=== PATIENT | female | born 1985 | race Caucasian/White ===

== ENCOUNTER → 2020-10-10 | Outpatient (CLI) | payer OTHER ==
--- NOTE | 2020-10-10 16:31 | US ---
EXAMINATION TYPE: Transabdominal DATE OF EXAM: 10/10/2020 3:56 PM COMPARISON: NONE CLINICAL HISTORY: Z36 Confirm Dates. Positive beta-hCG test. EXAM PERFORMED: Transabdominal (TA) EXAM MEASUREMENTS: GESTATIONAL AGE / DATING Physician Established: Not yet established Dates by LMP: LMP unknown Dates by First Scan: No previous this is first scan Dates by Current Scan for: (11 weeks/0 days) EDC: 05/01/2021 MATERNAL ANATOMY Uterus: 15.9 x 7.1 x 9.5 cm Right Ovary: Obscured by bowel gas. Left Ovary: 2.6 x 1.9 x 1.8 cm Post CDS / Adnexa: wnl Presence of free fluid: no Presence of corpus luteal cyst: no Presence of subchorionic bleed: no GESTATION / SURVEY CRL: 4.04 cm (11 weeks/0 days) Yolk Sac (normal less than 6mm): 5 mm Heart Rate: 158 bpm Rhythm: Normal IUP: Viable IUP Beta HcG (if available): Not available at this time Single live intrauterine gestation is confirmed as gestational sac, yolk sac, pole are present. No free fluid. Left ovary is seen. Right ovary is not identified. No suspicious adnexal masses noted. IMPRESSION: Single live intrauterine gestation, mean crown-rump length 4.0 cm corresponding to 11 wee k 0 day old fetus.
== END | disposition home or self-care (01) ==
LOC: RADUSWWP 15:40
PROVIDERS: ATTEND Obstetrics & Gynecology
DX: Z36.87 Encounter for antenatal screening for uncertain dates (principal); Z3A.11 11 weeks gestation of pregnancy
CPT/HCPCS: 76801

== ENCOUNTER → 2021-04-19 | Outpatient (CLI) | payer OTHER ==
--- NOTE | 2021-04-19 16:02 | US ---
EXAMINATION TYPE: US OB >= 14 wk fetus DATE OF EXAM: 04/19/2021 COMPARISON: None CLINICAL HISTORY: O36.60X0 MACROSOMIAEFW JOHN TECHNIQUE: Transabdominal (TA) GESTATIONAL AGE / DATING Physician Established: (38 weeks/2 days) EDC: 05/01/2021 Dates by LMP: (38 weeks/2 days) EDC: 05/01/2021 Dates by First Scan: (38 weeks/2 days) EDC: 05/01/2021 Dates by Current Scan: (36 weeks/0 days) EDC: 05/17/2021 SURVEY IUP: Single PLACENTA: Fundal PREVIA: No Previa JOHN: 8.6 cm Normal CERVICAL LENGTH (transabdominal: norm > 3.0cm): cm BIOMETRY PRESENTATION: Vertex LIE: Longitudinal BPD: 9.3 cm 37 weeks / 6 days HC: 31.81 cm 35 weeks / 6 days AC: 31.22 cm 35 weeks / 1 days FL: 7.19 cm 36 weeks / 6 days ESTIMATED WEIGHT IN GRAMS: 2810 grams ESTIMATED WEIGHT IN LBS/OZ: 6 lbs. 3 oz. WEIGHT PERCENTAGE BASED ON ESTABLISHED DATES: 12.4% HC/AC: 1.0 cm Normal FL/AC: 23.04 cm Normal HEART RATE: 132 bpm RHYTHM: Normal Head circumference index is mildly elevated. Femur length to head circumference is slightly elevated. IMPRESSION: 1. Single intrauterine gestation estimated at 36 weeks 0 days gestation based on the current ultrasou nd measurements. Cardiac activity measures 132 bpm. 2. Estimated weight is 2810 g based on current measurements. This is in the 12th percentile.
== END | disposition home or self-care (01) ==
LOC: RADUSWWP 10:46
PROVIDERS: ATTEND Obstetrics & Gynecology
DX: O36.60X0 Maternal care for excessive fetal growth, unspecified trimester, not applicable or unspecified (principal); Z3A.36 36 weeks gestation of pregnancy
CPT/HCPCS: 76805

== ENCOUNTER 2021-04-30 06:09 | Inpatient (IN) | payer OTHER ==
--- NOTE | 2021-04-29 16:55 | P.HPOB ---
History of Present Illness H&P Date: 04/29/21 Chief Complaint: Intrauterine at term: Prior surgery and section Rita is a 35-year-old 3 para 22 prior sections was scheduled for repeat section. Risks/benefits/alternatives to this procedure were reviewed the patient in detail and all questions were answered for her prior to proceeding to the operating room. Her course generally has been unremarkable and she is feeling well at this time. Her 1 tracing will be noted prior to proceeding to the operating room. She is scheduled for repeat section.or family planning. There is some concern over macrosomia but with a section plan should limit risks of issues including dystocia or brachial plexus issues. Past Medical History Past Medical History: No Reported History History of Any Multi-Drug Resistant Organisms: None Reported Past Surgical History: Section Past Anesthesia/Blood Transfusion Reactions: No Reported Reaction Additional Past Anesthesia/Blood Transfusion Reaction / Comment(s): HAS NEVER HAD GENERAL ANETHESIA. Past Psychological History: No Psychological Hx Reported Past Alcohol Use History: None Reported Past Drug Use History: None Reported Medications and Allergies Home Medications Medication Instructions Recorded Confirmed Type No Known Home Medications 04/10/15 04/10/15 History Allergies Allergy/AdvReac Type Severity Reaction Status Date / Time No Known Allergies Allergy Verified 04/10/15 15:29 Exam Osteopathic Statement: *. No significant issues noted on an osteopathic structural exam other than those noted in the History and Physical/Consult. - OBG Physical Exam Breast: both: normal (no masses) Abdomen: bowel sounds normal, no diffuse tenderness, no bruit present, no guarding noted, no hepatomegaly, no splenomegaly, no mass Vulva: both: normal Vagina: normal moisture, no discharge Cervix: no lesion, no discharge Uterus: normal size, normal contour Adnexa: both: normal Anus/Rectum: normal perianal skin, no rectal mass, no hemorrhoids, heme negative
[2021-04-30] MEDS ORDERED: CITRIC ACID-SODIUM CITRATE 15 ML CUP PO ONE (06:21)
[2021-04-30] MEDS: LACTATED RINGERS 1,000 ML IV SCH ×2 (06:28→16:06)
[2021-04-30 06:34] LABS: Basophils % (A) 1 %; Eosinophils # (A) 0.2 k/uL (0-0.7); Eosinophils % (A) 2 %; HCT 39.3 % (34.0-46.0); HGB 13.4 gm/dL (11.4-16.0); Lymphocytes # (A) 1.7 k/uL (1.0-4.8); Lymphocytes % (A) 22 %; MCH 31.9 pg (25.0-35.0); MCHC 34.2 g/dL (31.0-37.0); MCV 93.4 fL (80.0-100.0); Monocytes # (A) 0.3 k/uL (0-1.0); Monocytes % (A) 4 %; Neutrophils # (A) 5.4 k/uL (1.3-7.7); Neutrophils % (A) 70 %; Platelet Count 136 k/uL (150-450); RDW 13.4 % (11.5-15.5); WBC 7.8 k/uL (3.8-10.6)
[2021-04-30] MEDS ORDERED: MORPHINE SULFATE (PF) 0.3 MG/0.3 ML SYR ONE (07:55)
[2021-04-30] MEDS ORDERED: ePHEDrine SULFATE/0.9% NACL/PF 50 MG/5 ML SYRINGE IV ONE (07:55)
[2021-04-30] MEDS ORDERED: ONDANSETRON 4 MG/2 ML VIAL ONE (07:55)
[2021-04-30] MEDS ORDERED: KETOROLAC 15 MG/ML 1 ML VIAL ONE (07:55)
[2021-04-30] MEDS ORDERED: NALBUPHINE 10 MG/ML (1 ML AMP) ONE (07:55)
[2021-04-30] MEDS ORDERED: OXYTOCIN 30 UNITS/500 ML NS BAG IV ONE (07:55)
[2021-04-30] MEDS ORDERED: PHENYLEPHRINE-0.9% NACL SYG 1,000 MCG/10 ML SYRINGE ONE (07:55)
[2021-04-30] MEDS ORDERED: diphenhydrAMINE 50 MG/ML 1 ML VIAL IVP PRN ×3 (08:31→08:51)
[2021-04-30] MEDS ORDERED: ONDANSETRON 4 MG/2 ML VIAL IVP PRN (08:31)
[2021-04-30] MEDS ORDERED: MORPHINE SULFATE 2 MG/ML SYRINGE IVP PRN (08:31)
[2021-04-30] MEDS ORDERED: NALOXONE 0.4 MG/ML 1 ML VIAL IV PRN (08:31)
[2021-04-30] MEDS ORDERED: diphenhydrAMINE 25 MG CAP PO PRN (08:51)
[2021-04-30] MEDS ORDERED: HYDROmorphone 2 MG TAB PO PRN ×2 (08:51)
[2021-04-30] MEDS ORDERED: METOCLOPRAMIDE 5 MG/ML 2 ML VIAL IVP PRN (08:51)
[2021-04-30] MEDS ORDERED: MEASLES-MUMPS-RUBELLA VACC/PF 12,500 UNIT/0.5 ML VIAL SQ ONE (08:51)
[2021-04-30] MEDS ORDERED: ZOLPIDEM 5 MG TAB PO PRN (08:51)
[2021-04-30] MEDS ORDERED: diphenhydrAMINE 50 MG CAP PO PRN (08:51)
--- NOTE | 2021-04-30 08:58 | P.OP ---
Date of Procedure: 04/30/21 Preoperative Diagnosis: Intrauterine at term: Previous section: Family planning Postoperative Diagnosis: Same Procedure(s) Performed: Repeat low transverse section with bilateral tubal occlusion Filshie clips Anesthesia: spinal Surgeon: Jose Watters Web Site Developer #1: Heather Tran Estimated Blood Loss (ml): 338 IV fluids (ml): 1,000 Urine output (ml): 400 Pathology: none sent Condition: stable Disposition: floor Operative Findings: Female Apgars scores and weight are the chart but both mother and baby are stable following delivery Description of Procedure: Patient was taken the operating suite where a spinal anesthetic was found be adequate. She was prepped and draped in the normal sterile fashion and placed in dorsal supine position with leftward tilt. Initially a Pfannenstiel skin incision was made and this incision was then carried through to underlying layer of the fascia was second knife. Fascia was then nicked in midline and this opening was extended laterally with Grady scissors. Superior and inferior aspect of this incision were then grasped tented up and bluntly and sharply dissected off the rectus muscles rectus muscles were then divided midline and blunt dissection the peritoneum was performed. This opening was then extended superiorly and inferiorly with good visualization of both bowel bladder. Bladder blade was then placed bladder flap identified and entered with metastases scissors. This was then carried across face uterus and bladder was bluntly dissected out of the operative field. Uterus had a window in lower uterine segment and one very gentle pass with a knife was used to than hemostat was used to complete entry into the uterus. This opening was then extended bluntly. Head was then atraumatically delivered and mouth nares were bulb suctioned. Anterior posterior shoulders then delivered with gentle downward and upward traction followed by the remainder the baby. Nursery personnel was p resent and the umbilical cord clamped cut usual fashion. Placenta was then delivered intact Pitocin was added to the IV. Uterus was then exteriorized cleared of clots and debris and closed in 2 layers with 0 Vicryl suture. Once excellent hemostasis was obtained blood and debris was suctioned the posterior cul-de-sac. Once this was completed Filshie clip applied 2 cm from uterine cornu bilaterally. Uterus was then reinserted into the abdomen with verification of Filshie clip application and verification of hemostasis. Gutters were cleared. Peritoneal layer was then closed with 0 Vicryl suture. Fascial layer was then closed with 0 Vicryl suture. One layer of 3-0 Vicryl was placed in deep subcuticular tissues to reapproximate skin and the skin was then closed with 3-0 Vicryl subcuticularly. Sponge, lap, needle counts were all correct 2. Patient was then taken to the recovery room in stable and satisfactory condition.
[2021-04-30] MEDS: KETOROLAC 15 MG/ML 1 ML VIAL IVP PRN (12:18)
[2021-04-30] MEDS ORDERED: Rhogam IMMUNE GLOBULIN 1,500 UNIT/1 ML IM ONE (15:08)
[2021-04-30] MEDS: IBUPROFEN 600 MG TAB PO SCH ×2 (16:19→21:24)
[2021-04-30] MEDS: SENNOSIDES-DOCUSATE SODIUM 1 EACH TAB PO SCH (22:16)
[2021-05-01] MEDS: KETOROLAC 15 MG/ML 1 ML VIAL IVP PRN (00:17)
[2021-05-01] MEDS: ACETAMINOPHEN TAB 500 MG TAB PO SCH ×6 (01:07→22:17)
[2021-05-01 04:19] LABS: Basophils % (A) 0 %; Eosinophils # (A) 0.1 k/uL (0-0.7); Eosinophils % (A) 1 %; HCT 35.9 % (34.0-46.0); HGB 12.4 gm/dL (11.4-16.0); Lymphocytes # (A) 1.5 k/uL (1.0-4.8); Lymphocytes % (A) 15 %; MCH 32.8 pg (25.0-35.0); MCHC 34.5 g/dL (31.0-37.0); MCV 95.1 fL (80.0-100.0); Mean Platelet Volume 10.3; Monocytes # (A) 0.5 k/uL (0-1.0); Monocytes % (A) 5 %; Neutrophils % (A) 79 %; Platelet Count 135 k/uL (150-450); RBC 3.78 m/uL (3.80-5.40); RDW 13.8 % (11.5-15.5); WBC 10.1 k/uL (3.8-10.6)
[2021-05-01] MEDS: LACTATED RINGERS 1,000 ML IV SCH ×4 (04:37→09:04)
[2021-05-01] MEDS: IBUPROFEN 600 MG TAB PO SCH ×4 (04:39→20:40)
--- NOTE | 2021-05-01 07:35 | P.PN ---
Progress Note - Text Progress Note Date: 05/01/21 Postoperative day 1 status post section under spinal anesthesia, and i ntrathecal morphine given for postoperative analgesia, patient doing well, there is no anesthesia related complications, Patient had no headache, vital signs stable , Assessment and plan= postop day 1 status post , doing well there is no anesthesia related complication.
[2021-05-01] MEDS: SENNOSIDES-DOCUSATE SODIUM 1 EACH TAB PO SCH ×2 (08:05→20:41)
--- NOTE | 2021-05-01 08:43 | P.PNOBGPC ---
Subjective - Subjective Principal diagnosis: Postop day 1 Interval history: Marli is doing very well postop day 1. She is involuting, voiding and tolerating her diet. She voices no complaints. Vital signs are stable and afebrile. Heart regular, lungs clear, extremities without pain. Abdomen soft and uterus firm. Her incision is clean dry and intact. We'll plan continue current care for now. Advancement of diet as well. Objective - Vital Signs Latest vital signs: Vital Signs Temp Pulse Resp BP Pulse Ox 05/01/21 05:00 16 97 05/01/21 04:00 98.2 F 62 16 102/60 97 05/01/21 03:00 16 05/01/21 01:00 16 97 05/01/21 00:00 98.7 F 65 16 111/66 97 04/30/21 23:00 16 04/30/21 21:00 14 97 04/30/21 19:48 98 F 64 16 111/71 96 04/30/21 19:00 16 04/30/21 15:46 97.5 F L 61 16 112/68 97 04/30/21 14:52 16 04/30/21 13:31 95 04/30/21 13:00 16 04/30/21 11:39 63 16 112/63 04/30/21 11:18 16 04/30/21 11:09 67 16 116/76 04/30/21 10:39 68 16 114/62 04/30/21 10:24 71 16 107/63 04/30/21 10:07 70 16 114/64 04/30/21 09:54 90 16 117/73 04/30/21 09:39 97.1 F L 67 16 116/76 04/30/21 09:31 16 95 Intake and Output 04/30/21 05/01/21 05/01/21 22:59 06:59 14:59 Output Total 675 300 Balance -675 -300 Output: Urine 675 300 Other: # Voids 1 1 - Exam Lungs: bilateral: normal Chest: Normal S1, Normal S2 Extremities: Present: normal Abdomen: Present: normal appearance, soft. Absent: distention, tenderness Incision: Present: normal, dry, intact Uterus: Present: normal, firm - Labs Labs: Abnormal Lab Results - Last 24 Hours (Table) 05/01/21 Range/Units 03:03 RBC 3.78 L (3.80-5.40) m/uL Plt Count 135 L (150-450) k/uL Neutrophils # 8.0 H (1.3-7.7) k/uL
[2021-05-01 15:04] VITALS: RESP 16
[2021-05-02] MEDS: IBUPROFEN 600 MG TAB PO SCH ×2 (02:36→10:45)
[2021-05-02] MEDS: ACETAMINOPHEN TAB 500 MG TAB PO SCH (05:50)
--- NOTE | 2021-05-02 07:35 | P.DS ---
Providers Date of admission: 04/30/21 06:09 Expected date of discharge: 05/02/21 Attending physician: Jose Watters Primary care physician: Stated None Hospital Course: Marli is doing very well postop day 2. She is ambulating, voiding and tolerating her diet. She voices no complaints and is requesting discharge home today. Vital signs are stable and afebrile. Heart regular, lungs clear, extremities without pain. Abdomen is soft uterus is firm and lochia is light. Incisions clean dry and intact. She is not requiring any narcotic pain relievers to go home today pressure for Motrin was forwarded to the pharmacy. She will follow up with me in 1 week. Discharge instructions were thoroughly reviewed and all questions are answered for her prior to discharge. She is stable for discharge this time. Patient Condition at Discharge: Good Plan - Discharge Summary Discharge Rx Participant: No New Discharge Prescriptions: New Ibuprofen [Motrin] 600 mg PO Q6HR PRN #30 tab PRN Reason: Pain No Action Pnv No.95/Ferrous Fum/Folic AC [ Multivitamin Tablet] 1 each PO DAILY Discharge Medication List Pnv No.95/Ferrous Fum/Folic AC [ Multivitamin Tablet] 1 each PO DAILY 04/30/21 [History] Ibuprofen [Motrin] 600 mg PO Q6HR PRN #30 tab 05/02/21 [Rx] Follow up Appointment(s)/Referral(s): Jose Watters DO [Doctor of Osteopathic Medicine] - 06/11/21 11:00 am (05-09-2021 at 02:00p.m.) Activity/Diet/Wound Care/Special Instructions: No heavy lifting, limit stairs and driving, and pelvic rest. If any high temperatures, heavy bleeding, or severe pain call my office Discharge Disposition: HOME SELF-CARE
[2021-05-02 08:12] VITALS: BP 109/71; PULSE 68; TEMP 98.7
[2021-05-02] MEDS: SENNOSIDES-DOCUSATE SODIUM 1 EACH TAB PO SCH (10:46)
== END 2021-05-02 12:00 | disposition home or self-care (01) | DRG 785 ==
LOC: 4FBP 06:09
PROVIDERS: ADMIT Obstetrics & Gynecology; ATTEND Obstetrics & Gynecology
PROC: 3E0134Z Introduction of Serum, Toxoid and Vaccine into Subcutaneous Tissue, Percutaneous Approach (ICD-10-PCS; 2021-04-30)
PROC: 3E0234Z Introduction of Serum, Toxoid and Vaccine into Muscle, Percutaneous Approach (ICD-10-PCS; 2021-04-30)
PROC: 10D00Z1 Extraction of Products of Conception, Low, Open Approach (ICD-10-PCS; principal; 2021-04-30 08:15)
PROC: 0UL70CZ Occlusion of Bilateral Fallopian Tubes with Extraluminal Device, Open Approach (ICD-10-PCS; principal; 2021-04-30 08:15)
DX: O34.211 Maternal care for low transverse scar from previous cesarean delivery (principal); N85.8 Other specified noninflammatory disorders of uterus; O26.893 Other specified pregnancy related conditions, third trimester; Z67.11 Type A blood, Rh negative; Z3A.39 39 weeks gestation of pregnancy; Z37.0 Single live birth; Z79.899 Other long term (current) drug therapy; Z23 Encounter for immunization
CPT/HCPCS: 85025; 85461; 86850; 86870; 86880; 86900; 86901